=== PATIENT | male | born 1945 | race Caucasian/White ===

== ENCOUNTER 2020-11-07 22:57 | Emergency (ER) | payer MEDICARE ==
[~2020-11-07] VITALS: Ht 175.3 cm; Wt 79.4 kg
[~2020-11-07 22:57] MED LIST: LEVOXYL75 MCG; PRAVASTATIN SOD10 MG PO
[2020-11-07] MEDS ORDERED: AUGMENTIN 875-1 EACH PO (23:16)
[2020-11-07 23:44] LABS: URINE BILIRUBIN NEGATIVE (Negative); URINE BLOOD 2+ (Negative); URINE CLARITY CLEAR; URINE COLOR YELLOW; URINE GLUCOSE-RANDOM NEGATIVE (Negative); URINE KETONES 2+ (Negative); URINE LEUKOCYTES-REFLEX NEGATIVE (Negative); URINE NITRITE-REFLEX NEGATIVE (Negative); URINE PROTEIN 1+ (Negative); URINE SPECIFIC GRAVITY 1.025 (1.005-1.030); URINE UROBILINOGEN 0.2 E.U./dl (0.2-1.0)
[2020-11-07 23:57] LABS: ABSOLUTE LYMPHOCYTES 0.5 thou/uL (0.8-5.3); ABSOLUTE MONOCYTES 0.4 thou/uL (0.0-1.2); BASOPHILS 0.9 %; HEMATOCRIT 43.9 % (42.0-52.0); HEMOGLOBIN 15.5 gm/dL (14.0-18.0); LYMPHOCYTES 12.4 %; MCH 30.7 pg (26.0-34.0); MCHC 35.3 g/dL (28.0-37.0); MCV 86.8 fL (80.0-100.0); MONOCYTES 9.6 %; MPV 8.1 fl. (7.2-11.1); NUCLEATED RBCS 0 /100WBC; PLATELET COUNT* 131 thou/uL (150-400); POLYS 77.1 %; RBC 5.06 mil/uL (4.50-6.00); RDW-CV 14.6 % (10.5-14.5); WBC 3.9 thou/uL (4.0-11.0)
[2020-11-08 00:14] LABS: CALCIUM 8.2 mg/dL (8.5-10.1); CREATININE 1.4 mg/dL (0.6-1.3); POTASSIUM 4.2 mmol/L (3.5-5.1)
[2020-11-08 00:18] LABS: ALBUMIN 3.4 g/dL (3.4-5.0); TOTAL BILIRUBIN 0.5 mg/dL (<0.1-1.0)
[2020-11-08 00:21] LABS: BACTERIA-REFLEX >30 Many /HPF (None Seen); CASTS None Seen /LPF (None Seen); CRYSTALS None Seen /LPF (None Seen); MUCUS 4-6 Moderate strn/LPF (None Seen); SQUAMOUS 0-3 Few /LPF (0-3); URINE RBC 3-10 Few /HPF (0-2); URINE WBC-REFLEX 0-5 Rare /HPF (0-5)
[2020-11-08 02:08] VITALS: BP 120/70
--- NOTE | 2020-11-08 10:29 | EKG ---
[place] [address] ELECTROCARDIOGRAM REPORT Name: LINDSAY LISA Room: [facility]#: [id number] Admission: 11/07/20 Attend Phys: Discharge: 11/08/20 Date of : 49 Date of Service: 11/07/202309 Report #: [id number] THIS REPORT FOR: //name// [facility] ED Test Date: 2020-11-07 Test Time: 23:10:40 Pat Name: LINDSAY LISA Department: Room: Gender: [employer] So[employer] Consultant: [place] : 1945 Requested By: Grace Roberts Order Number: [id number] MD: Yvon Teresa Measurements Intervals [place] Rate: 80 P: 48 MN: 152 QRS: 11 QRSD: 85 T: 3 QT: 347 QTc: 401 Interpretive Statements Sinus rhythm No previous ECG available for comparison Electronically Signed On 11-08-2020 10:29:44 CDT by Yvon Teresa [email or web address] <ELECTRONICALLY SIGNED> By: Yvon Teresa MD, [facility] 11/08/20 1029 09 09 Yvon Teresa MD, FACC /EPI
== END 2020-11-08 02:08 | disposition home or self-care (01) ==
LOC: M.ERS 22:57
PROVIDERS: Personal Emergency Response Attendant
DX: E86.0 Dehydration (principal); R50.9 Fever, unspecified; Z98.890 Other specified postprocedural states